=== PATIENT | male | born 1940 | race Caucasian/White ===

== ENCOUNTER 2018-04-12 12:04 | Day surgery (SDC) | payer MEDICARE ==
[~2018-04-12] VITALS: Ht 177.8 cm; Wt 92.3 kg
[~2018-04-12 12:04] MED LIST: ? BP MED; AMOX500 PO; Bystolic2.5 MG PO; EZET10-40; EZET10-40 PO; LEVO750 PO; Lovastatin20 MG PO; METO50 PO; MOEHYD7.5 PO; TRAZ50 PO; VENL25 PO; Zestril40 MG PO
[2018-04-12] MEDS ORDERED: ASPI81CH (12:23)
== END 2018-04-12 13:23 | disposition home or self-care (01) ==
LOC: ORSCSDS 12:04
PROVIDERS: Anesthesiology
PROC: 3E0R33Z Introduction of Anti-inflammatory into Spinal Canal, Percutaneous Approach (ICD-10-PCS; principal; 2018-04-12 13:15)
DX: M54.16 Radiculopathy, lumbar region (principal); I10 Essential (primary) hypertension; F32.9 Major depressive disorder, single episode, unspecified; I25.10 Atherosclerotic heart disease of native coronary artery without angina pectoris; I25.2 Old myocardial infarction; G47.33 Obstructive sleep apnea (adult) (pediatric); Z79.82 Long term (current) use of aspirin; Z79.899 Other long term (current) drug therapy
CPT/HCPCS: J1040

== ENCOUNTER 2018-05-13 08:52 | Day surgery (SDC) | payer MEDICARE ==
[~2018-05-13] VITALS: Ht 177.8 cm; Wt 94.4 kg
[~2018-05-13 08:52] MED LIST changes: +ASPI81CH
== END 2018-05-13 10:29 | disposition home or self-care (01) ==
LOC: ORSCSDS 08:52
PROVIDERS: Anesthesiology
PROC: 3E0R33Z Introduction of Anti-inflammatory into Spinal Canal, Percutaneous Approach (ICD-10-PCS; principal; 2018-05-13 10:00)
DX: M54.16 Radiculopathy, lumbar region (principal); I10 Essential (primary) hypertension; G47.33 Obstructive sleep apnea (adult) (pediatric); I25.2 Old myocardial infarction; I25.10 Atherosclerotic heart disease of native coronary artery without angina pectoris; Z79.82 Long term (current) use of aspirin; Z79.899 Other long term (current) drug therapy
CPT/HCPCS: J1040

== ENCOUNTER → 2018-07-15 | Outpatient (CLI) | payer MEDICARE ==
[2018-07-15 09:17] LABS: Creatinine, Blood 1.05 mg/dL (0.60-1.20); Glomerular Filtration Rate >60 (60-)
== END | disposition home or self-care (01) ==
LOC: LAB SHORT 11:01 → LAB 11:01
PROVIDERS: Psychiatry & Neurology Neurology
DX: M54.16 Radiculopathy, lumbar region (principal); M62.81 Muscle weakness (generalized); G25.81 Restless legs syndrome
CPT/HCPCS: 36415; 82565

== ENCOUNTER → 2019-03-25 | Outpatient (CLI) | payer MEDICARE | END | disposition home or self-care (01) | LOC: LAB SHORT 14:20 → LAB EV 14:20 | DX: E11.9 Type 2 diabetes mellitus without complications (principal) | CPT/HCPCS: 82043 ==

== ENCOUNTER → 2020-10-08 | Outpatient (CLI) | payer MEDICARE | END | disposition home or self-care (01) | LOC: LAB SHORT 19:04 → LAB 19:04 | DX: Z20.828 Contact with and (suspected) exposure to other viral communicable diseases (principal) | CPT/HCPCS: U0003 ==

== ENCOUNTER 2021-05-13 11:19 | Emergency (ER) | payer MEDICARE ==
[~2021-05-13] VITALS: Ht 177.8 cm; Wt 88.9 kg
[2021-05-13 12:02] LABS: BASOPHILS ABSOLUTE AUTO 0.04 K/mm3 (0.00-0.23); BASOPHILS PERCENT AUTO 0 % (0-2); EOSINOPHILS ABSOLUTE AUTO 0.23 K/mm3 (0.00-0.68); EOSINOPHILS PERCENT AUTO 2 % (0-6); Hemoglobin 16.2 g/dL (13.5-17.5); IMMATURE GRAN ABSOLUTE AUTO 0.02 K/mm3 (0.00-0.10); IMMATURE GRAN PERCENT AUTO 0 % (0-1); LYMPHOCYTES ABSOLUTE AUTO 1.98 K/mm3 (0.84-5.20); LYMPHOCYTES PERCENT AUTO 21 % (21-46); MONOCYTES ABSOLUTE AUTO 1.51 K/mm3 (0.16-1.47); MONOCYTES PERCENT AUTO 16 % (4-13); Mean Corpuscular HGB 31.3 pg (26.0-34.0); Mean Corpuscular HGB Conc 34.5 g/dL (31.5-36.5); Mean Corpuscular Volume 91 fL (80-100); Mean Platelet Volume 9.9 fL (9.1-12.4); NEUTROPHILS ABSOLUTE AUTO 5.81 K/mm3 (1.96-9.15); NEUTROPHILS PERCENT AUTO 61 % (41-73); Platelet Count 200 K/mm3 (150-400); RDW Coefficient Variation 12.4 % (11.7-14.2); RDW Standard Deviation 41.4 fL (35.1-46.3); Red Blood Cell Count 5.17 M/mm3 (4.30-5.90); White Blood Cell Count 9.59 K/mm3 (4.00-11.30)
[2021-05-13 12:16] LABS: Alanine Aminotransfer (ALT/SGP 21 U/L (12-78); Albumin, Blood 3.5 g/dL (3.4-5.0); Albumin/Globulin Ratio 0.9 (0.8-1.8); Alk Phos 42 U/L (50-136); Anion Gap 5 mmol/L (6-16); Aspartate Aminotrans (AST/SGOT 17 U/L (12-37); Bilirubin, Total 0.7 mg/dL (0.1-1.0); Blood Urea Nitrogen 15 mg/dL (8-24); CO2, Blood 24 mmol/L (21-32); Calcium, Blood 9.2 mg/dL (8.5-10.1); Chloride, Blood 108 mmol/L (98-108); Globulin, Blood 3.9 g/dL (2.2-4.0); Glomerular Filtration Rate >60 (60-); Glucose, Blood 84 mg/dL (70-99); Potassium, Blood 4.3 mmol/L (3.5-5.5); Sodium, Blood 137 mmol/L (136-145); Total Protein, Blood 7.4 g/dL (6.4-8.2)
[2021-05-13 12:22] LABS: Magnesium, Blood 2.1 mg/dL (1.6-2.4); Troponin I <0.015 ng/mL (0.000-0.040)
== END 2021-05-13 16:19 | disposition home or self-care (01) ==
LOC: ER 11:19
PROVIDERS: Emergency Medicine; Student in an Organized Health Care Education/Training Program
DX: R42 Dizziness and giddiness (principal); R50.9 Fever, unspecified; Z79.82 Long term (current) use of aspirin; Z79.899 Other long term (current) drug therapy
CPT/HCPCS: 36415; 70450; 71046; 80053; 83735; 84484; 85025; 93005; 93010; 99284-25

== ENCOUNTER 2022-07-28 06:22 | Day surgery (SDC) | payer MEDICARE ==
[~2022-07-28] VITALS: Ht 177.8 cm; Wt 91.0 kg
[~2022-07-28 06:22] MED LIST changes: -ASPI81CH; +ASPI81CH PO; +Crestor20 MG PO; +METO25; +PRAM.125 PO
--- NOTE | 2022-07-28 10:30 | NUR ---
10CC AIR REMOVED FROM R WRIST TR BAND. -BLEEDING OR SWELLING. PT AMB TO BATHROOM /C SBA.
--- NOTE | 2022-07-28 11:22 | NUR ---
PT AND VERBALIZED UNDERSTANDING OF WRITTEN AND VERBAL D/C INST. R WRIST TR BAND REMOVED AND CLEANED /C NS. CLOT DOT DRSG PLACED AND R WRIST SPLINT REAPPLIED. IV REMOVED. PT TAKEN OUT OF THE [facility]ENTER VIA W/C.
== END 2022-07-28 12:00 | disposition home or self-care (01) ==
LOC: MHTC 06:22
DX: I35.0 Nonrheumatic aortic (valve) stenosis (principal); I25.10 Atherosclerotic heart disease of native coronary artery without angina pectoris; I10 Essential (primary) hypertension; Z95.5 Presence of coronary angioplasty implant and graft; E78.5 Hyperlipidemia, unspecified; G47.33 Obstructive sleep apnea (adult) (pediatric); Z79.82 Long term (current) use of aspirin; F32.A Depression, unspecified; R06.02 Shortness of breath
CPT/HCPCS: 76937; 93454; 99152; 99153; A9270; C1769; C1887; C1894; J1644; J2250; J3010; J7030; J7040; Q9967

== ENCOUNTER 2022-08-12 19:12 | Inpatient (IN) | payer MEDICARE ==
[~2022-08-12] VITALS: Ht 177.8 cm; Wt 96.0 kg
[~2022-08-12 19:12] MED LIST changes: -METO25; +METO25 PO
[2022-08-12 20:38] LABS: BASOPHILS ABSOLUTE AUTO 0.01 K/mm3 (0.00-0.23); BASOPHILS PERCENT AUTO 0 % (0-2); EOSINOPHILS PERCENT AUTO 0 % (0-6); Hemoglobin 15.7 g/dL (13.5-17.5); IMMATURE GRAN ABSOLUTE AUTO 0.02 K/mm3 (0.00-0.10); IMMATURE GRAN PERCENT AUTO 0 % (0-1); LYMPHOCYTES ABSOLUTE AUTO 0.75 K/mm3 (0.84-5.20); LYMPHOCYTES PERCENT AUTO 9 % (21-46); MONOCYTES ABSOLUTE AUTO 1.11 K/mm3 (0.16-1.47); MONOCYTES PERCENT AUTO 13 % (4-13); Mean Corpuscular HGB 31.2 pg (26.0-34.0); Mean Corpuscular HGB Conc 34.9 g/dL (31.5-36.5); Mean Corpuscular Volume 90 fL (80-100); Mean Platelet Volume 10.4 fL (9.1-12.4); NEUTROPHILS ABSOLUTE AUTO 6.96 K/mm3 (1.96-9.15); NEUTROPHILS PERCENT AUTO 79 % (41-73); Platelet Count 156 K/mm3 (150-400); RDW Coefficient Variation 12.5 % (11.7-14.2); Red Blood Cell Count 5.03 M/mm3 (4.30-5.90); White Blood Cell Count 8.85 K/mm3 (4.00-11.30)
[2022-08-12 20:51] LABS: Albumin, Blood 3.5 g/dL (3.4-5.0); Albumin/Globulin Ratio 1.1 (0.8-1.8); Bilirubin, Direct 0.2 mg/dL (0.0-0.3); Bilirubin, Indirect 0.5 mg/dL (0.1-0.7); Bilirubin, Total 0.7 mg/dL (0.1-1.0); Bun/Creatinine Ratio 17.5 (12.0-20.0); Calcium, Blood 8.8 mg/dL (8.5-10.1); Creatinine, Blood 0.86 mg/dL (0.60-1.20); Globulin, Blood 3.2 g/dL (2.2-4.0); Magnesium, Blood 1.3 mg/dL (1.6-2.4); Potassium, Blood 3.8 mmol/L (3.5-5.5); Total Protein, Blood 6.7 g/dL (6.4-8.2)
[2022-08-12 21:28] LABS: Influenza A, PCR NEGATIVE (NEGATIVE); Influenza B, PCR NEGATIVE (NEGATIVE); Resp Syncytial Virus, PCR NEGATIVE (NEGATIVE); SARS-Cov-2 (COVID-19) PCR, MMC POSITIVE (NEGATIVE)
[2022-08-13 05:09] LABS: BASOPHILS ABSOLUTE AUTO 0.01 K/mm3 (0.00-0.23); BASOPHILS PERCENT AUTO 0 % (0-2); EOSINOPHILS PERCENT AUTO 0 % (0-6); IMMATURE GRAN ABSOLUTE AUTO 0.01 K/mm3 (0.00-0.10); IMMATURE GRAN PERCENT AUTO 0 % (0-1); LYMPHOCYTES PERCENT AUTO 8 % (21-46); MONOCYTES ABSOLUTE AUTO 0.26 K/mm3 (0.16-1.47); MONOCYTES PERCENT AUTO 4 % (4-13); Mean Corpuscular HGB 30.9 pg (26.0-34.0); Mean Corpuscular HGB Conc 34.1 g/dL (31.5-36.5); Mean Corpuscular Volume 91 fL (80-100); Mean Platelet Volume 10.7 fL (9.1-12.4); NEUTROPHILS ABSOLUTE AUTO 5.17 K/mm3 (1.96-9.15); NEUTROPHILS PERCENT AUTO 87 % (41-73); Platelet Count 149 K/mm3 (150-400); RDW Coefficient Variation 12.7 % (11.7-14.2); RDW Standard Deviation 42.1 fL (35.1-46.3); Red Blood Cell Count 4.86 M/mm3 (4.30-5.90); White Blood Cell Count 5.95 K/mm3 (4.00-11.30)
[2022-08-13 05:42] LABS: Albumin, Blood 3.2 g/dL (3.4-5.0); Bilirubin, Total 0.5 mg/dL (0.1-1.0); Bun/Creatinine Ratio 17.2 (12.0-20.0); Calcium, Blood 8.2 mg/dL (8.5-10.1); Creatinine, Blood 0.75 mg/dL (0.60-1.20); Globulin, Blood 3.1 g/dL (2.2-4.0); Potassium, Blood 4.1 mmol/L (3.5-5.5); Total Protein, Blood 6.3 g/dL (6.4-8.2)
--- NOTE | 2022-08-13 07:32 | NUR ---
VENEER DRIER FEEDER SUMMARY PT GOES BY "[facility]". A&Ox4. PLEASANT AND COOPERATIVE WITH CARE. VSS. ENHANCED PRECAUTIONS FOR +COVID. FINE CRACKLES AUSCULTATED BILATERAL LUNG BASES. IV RAC PATENT AND INFUSING. SBA FOR AMBULATION, SO USING BEDSIDE URINAL. NEED GI PANEL STOOL SAMPLE. SCHEDULED FOR OPEN-HEART SURGERY NEXT WEEK. REPORT TO ONCOMING RN.
--- NOTE | 2022-08-13 11:16 | NUR ---
PATIENT PLEASANT TO CARE, MAKES NEEDS KNOWN, DENIES ANY COMPLAINTS OR CONCERNS, CALL LIGHT WITH IN REACH, SHOWER AND ORAL CARE COMPLETE. STOOL SAMPLE STILL NEEDED
--- NOTE | 2022-08-13 18:17 | NUR ---
ALERT AND ORIENTED, MAKES NEEDS KNOWN, CALL LIGHT WITH IN REACH, PLEASANT TO CARE, DR POWERS ROUNDED ON PATIENT. NO CHANGES CONTINUE REMDISIVER. STILL NEED STOOL SAMPLE, TO HAVE CABG NEXT WEEK, EDUCATION PRINTED ON CABG. VISITNG TODAY, HELPFUL WITH CARE, SATS 95% ON RA, GOOD APPETITE, NO NV, ACTIVE BT. TELEMETRY HEART RATE INCREASED TO 140S EARLIER, MEDICATED WITH SCHEDULED CARDIAC MEDICATION NOW IN 80. NO ACUTE CHANGES, WILL RELAY TO PN RN, WCTM
[2022-08-14 05:20] LABS: BASOPHILS ABSOLUTE AUTO 0.01 K/mm3 (0.00-0.23); BASOPHILS PERCENT AUTO 0 % (0-2); EOSINOPHILS PERCENT AUTO 0 % (0-6); Hematocrit 44.4 % (37.0-53.0); Hemoglobin 15.1 g/dL (13.5-17.5); IMMATURE GRAN ABSOLUTE AUTO 0.04 K/mm3 (0.00-0.10); IMMATURE GRAN PERCENT AUTO 0 % (0-1); LYMPHOCYTES ABSOLUTE AUTO 1.34 K/mm3 (0.84-5.20); LYMPHOCYTES PERCENT AUTO 12 % (21-46); MONOCYTES ABSOLUTE AUTO 1.14 K/mm3 (0.16-1.47); MONOCYTES PERCENT AUTO 10 % (4-13); Mean Corpuscular HGB 30.9 pg (26.0-34.0); Mean Corpuscular Volume 91 fL (80-100); Mean Platelet Volume 10.9 fL (9.1-12.4); NEUTROPHILS ABSOLUTE AUTO 8.67 K/mm3 (1.96-9.15); NEUTROPHILS PERCENT AUTO 77 % (41-73); Platelet Count 150 K/mm3 (150-400); RDW Coefficient Variation 12.6 % (11.7-14.2); Red Blood Cell Count 4.89 M/mm3 (4.30-5.90)
[2022-08-14 05:51] LABS: Bilirubin, Total 0.3 mg/dL (0.1-1.0); Bun/Creatinine Ratio 23.9 (12.0-20.0); Calcium, Blood 8.4 mg/dL (8.5-10.1); Creatinine, Blood 0.79 mg/dL (0.60-1.20); Globulin, Blood 3.1 g/dL (2.2-4.0); Magnesium, Blood 1.9 mg/dL (1.6-2.4); Phosphorus, Blood 2.7 mg/dL (2.5-4.9); Potassium, Blood 4.1 mmol/L (3.5-5.5); Total Protein, Blood 6.1 g/dL (6.4-8.2)
--- NOTE | 2022-08-14 06:32 | NUR ---
QUILLER OPERATOR SUMMARY A&Ox4. PLEASANT AND COOPERATIVE WITH CARE. VSS. C/O DIFFICULTY SLEEPING LAST NIGHT IN SPITE OF HAVING HAD A SECOND TRAZODONE PER ON-CALL PROVIDER. COMPLIANT WITH CPAP AND BiOX. NO ASE TO REMDESIVIR. SPOT >90% RA BUT WILL USE O2 WITH EXERTION. VERY CONCERNED R/T HAVING TO RESCHEDULE HIS HEART SURGERY. TELE SINUS STEVE AT 57bpm. NO ACUTE ISSUES T/O EVENING. WILL REPORT TO ONCOMING RN.
--- NOTE | 2022-08-14 06:38 | NUR ---
DINKEY OPERATOR SLATE SUMMARY A&Ox3. DROWSY, BUT WAKES WITH SOME COAXING. IV SITE CHANGED. CONTINUES WITH IV ABx. OBRIEN PATENT AND DRAINING TO GRAVITY. ACCEPTED MEDS BUT CONTINUES TO DECLINE ANY FOOD. C/O NAUSEA AND SOME GENERALIZED PAIN RELIEVED WITH PO APAP AND IV COMPAZINE. ANTICIPATE ETHICS COMMITTEE CONSULTATION R/T ESTABLISHING MEDICAL DECISION-MAKING. WILL REPORT TO ONCOMING RN.
--- NOTE | 2022-08-14 14:38 | NUR ---
YOSEF IS DISCHARGED TO HOME BY HE IS TO FOLLOW UP WITH HIS PCP AT [facility] WITHIN 7 DAYS. PATIENT AND SPOUSE WILL ALSO COMMUNICATE WITH HIS PAINT LABORATORY TECHNICIAN TO SEE IF HE NEEDS TO RESCHEDULE HIS SURGERY FOR CABG NEXT WEEK. PATIENT VERBALIZED DC INSTRUCTIONS ONLY MEDICATION CHANGE IS METOPROLOL 25MG TO 12.5MG BID NOW RATHER THAN 25MG DAILY. QUINTON TAKEN TO LOBBY VIA WHEELCHAIR AND SPOUSE TO DRIVE HIM HOME.
== END 2022-08-14 14:15 | disposition home or self-care (01) | DRG 177 ==
LOC: ER 19:12 → MEDS 21:58
PROVIDERS: Hospitalist; Student in an Organized Health Care Education/Training Program; ADMIT Internal Medicine
PROC: XW033E5 Introduction of Remdesivir Anti-infective into Peripheral Vein, Percutaneous Approach, New Technology Group 5 (ICD-10-PCS; principal; 2022-08-12)
PROC: 3E0333Z Introduction of Anti-inflammatory into Peripheral Vein, Percutaneous Approach (ICD-10-PCS; 2022-08-12)
PROC: 8E0ZXY6 Isolation (ICD-10-PCS; 2022-08-12)
DX: U07.1 COVID-19 (principal); J96.91 Respiratory failure, unspecified with hypoxia; A08.39 Other viral enteritis; I35.0 Nonrheumatic aortic (valve) stenosis; I25.10 Atherosclerotic heart disease of native coronary artery without angina pectoris; I10 Essential (primary) hypertension; G47.33 Obstructive sleep apnea (adult) (pediatric); C61 Malignant neoplasm of prostate; E78.00 Pure hypercholesterolemia, unspecified; G47.00 Insomnia, unspecified; E86.0 Dehydration; Z98.890 Other specified postprocedural states; Z79.899 Other long term (current) drug therapy; Z79.811 Long term (current) use of aromatase inhibitors; Z79.82 Long term (current) use of aspirin; Z95.1 Presence of aortocoronary bypass graft; Z95.5 Presence of coronary angioplasty implant and graft; Z99.81 Dependence on supplemental oxygen
CPT/HCPCS: 0241U; 36415; 71045; 80048; 80053; 80076; 83690; 83735; 84100; 85025; 85379; 93005; 93010; 96365; 96366; 96372-59; 96375; 99285-25; A9270; J0248; J1100; J1650; J3475; J7030; J7050

== ENCOUNTER 2023-01-18 11:12 | Day surgery (SDC) | payer MEDICARE ==
[~2023-01-18] VITALS: Ht 177.8 cm; Wt 84.4 kg
[~2023-01-18 11:12] MED LIST changes: +AMLO5 PO; +Finacea50 GM TP; +VITAMIN D310 MC5 PO
[2023-01-18 12:07] LABS: Bun/Creatinine Ratio 21.9 (12.0-20.0); Calcium, Blood 9.3 mg/dL (8.5-10.1); Creatinine, Blood 0.87 mg/dL (0.60-1.20); Potassium, Blood 5.2 mmol/L (3.5-5.5)
[2023-01-18 12:08] LABS: BASOPHILS ABSOLUTE AUTO 0.04 K/mm3 (0.00-0.23); BASOPHILS PERCENT AUTO 1 % (0-2); EOSINOPHILS ABSOLUTE AUTO 0.38 K/mm3 (0.00-0.68); EOSINOPHILS PERCENT AUTO 4 % (0-6); Hematocrit 46.5 % (37.0-53.0); Hemoglobin 15.8 g/dL (13.5-17.5); IMMATURE GRAN ABSOLUTE AUTO 0.01 K/mm3 (0.00-0.10); IMMATURE GRAN PERCENT AUTO 0 % (0-1); LYMPHOCYTES ABSOLUTE AUTO 2.37 K/mm3 (0.84-5.20); LYMPHOCYTES PERCENT AUTO 28 % (21-46); MONOCYTES ABSOLUTE AUTO 0.93 K/mm3 (0.16-1.47); MONOCYTES PERCENT AUTO 11 % (4-13); Mean Corpuscular HGB 29.8 pg (26.0-34.0); Mean Corpuscular Volume 88 fL (80-100); Mean Platelet Volume 10.5 fL (9.1-12.4); NEUTROPHILS ABSOLUTE AUTO 4.85 K/mm3 (1.96-9.15); NEUTROPHILS PERCENT AUTO 57 % (41-73); Platelet Count 168 K/mm3 (150-400); RDW Coefficient Variation 13.4 % (11.7-14.2); RDW Standard Deviation 43.4 fL (35.1-46.3); Red Blood Cell Count 5.31 M/mm3 (4.30-5.90); White Blood Cell Count 8.58 K/mm3 (4.00-11.30)
[2023-01-18 12:10] LABS: International Normalized Ratio 1.21; Prothrombin Time Results 12.5 Sec (9.7-11.5)
--- NOTE | 2023-01-18 18:25 | NUR ---
Pt arrived to the unit post pacer, and was alert and oriented, pleasantly conversant and cooperative. Smiling and making jokes at the time. His , daughter and a friend were at the bedside soon after he arrived. Vital signs were stable. Left chest wall dressing noted in place and intact without drainage, bleeding nor bruising. Ice pack was placed over the site for comfort and to reduce any swellling. He denied any pain nor symptoms. Pt and visitors present were educated on plan post surgery for this evening, tomorrow and at discharge. Activity restriction on the use of the left arm were reviewed; the pt stated that he was familiar with them as he had been told about it before. Also reviewed with his the wound check and pacemaker clinic appointments which had already been made. Pt was given a 12 lead EKG, a snack, and was also helped to walk to the bathroom to void, using his cane in his right hand and with staff walking with him. He denied any symptoms with this activity.
--- NOTE | 2023-01-19 06:39 | NUR ---
SHIFT SUMMARY PATIENT ALERT AND ORIENTED X4. ABLE TO AMBULATE TO THE BATHROOM INDEPENDENTLY. MEDICATED PER EMAR FOR HEADACHE. NO COMPLAINTS OF CHEST PAIN OR SHORTNESS OF BREATH. VITAL SIGNS STABLE. LUNGS CLEAR IN ALL CASTRO. SPO2 >90% ON ROOM AIR. THERE WAS A CONCERN FOR TELEMETRY CHANGES OVERNIGHT, EKG OBTAINED AND IS IN CHART. DRESSING IN PLACE OVER PACER SITE, NO BRUSING, BLEEDING, OR SWELLING NOTED. WILL CONTINUE TO MONITOR. CALL LIGHT WITHIN REACH.
[2023-01-19] MEDS ORDERED: METO100ER PO (08:19)
== END 2023-01-19 10:54 | disposition home or self-care (01) ==
LOC: MHTC 11:12 → PCU 14:33 → MHTC 01-19 10:54
PROVIDERS: Internal Medicine Cardiovascular Disease
DX: I49.5 Sick sinus syndrome (principal); I44.2 Atrioventricular block, complete; I50.21 Acute systolic (congestive) heart failure; I25.10 Atherosclerotic heart disease of native coronary artery without angina pectoris; Z95.1 Presence of aortocoronary bypass graft; Z95.5 Presence of coronary angioplasty implant and graft; I11.0 Hypertensive heart disease with heart failure; E78.5 Hyperlipidemia, unspecified; Z79.82 Long term (current) use of aspirin; I42.2 Other hypertrophic cardiomyopathy
CPT/HCPCS: 33208; 71046; 80048; 85025; 85610; 93005; 93010; 99152; 99153; A9270; C1785; C1894; C1898; J0690; J1644; J2250; J3010; J7030; J7040; Q9967

== ENCOUNTER 2023-03-28 11:55 | Day surgery (SDC) | payer MEDICARE ==
[~2023-03-28] VITALS: Ht 177.8 cm; Wt 86.9 kg
[~2023-03-28 11:55] MED LIST changes: +METO100ER PO
[2023-03-28] MEDS ORDERED: LISI20 (12:18)
[2023-03-28 15:13] VITALS: BP 121/70
== END 2023-03-28 15:45 | disposition home or self-care (01) ==
LOC: ORSCSDS 11:55
PROVIDERS: Internal Medicine Gastroenterology
PROC: 0DBK8ZX Excision of Ascending Colon, Via Natural or Artificial Opening Endoscopic, Diagnostic (ICD-10-PCS; principal; 2023-03-28 13:15)
DX: K59.00 Constipation, unspecified (principal); D12.2 Benign neoplasm of ascending colon; G47.30 Sleep apnea, unspecified; Z95.0 Presence of cardiac pacemaker; K57.30 Diverticulosis of large intestine without perforation or abscess without bleeding; I10 Essential (primary) hypertension; I25.10 Atherosclerotic heart disease of native coronary artery without angina pectoris; G47.33 Obstructive sleep apnea (adult) (pediatric); Z79.82 Long term (current) use of aspirin; Z79.899 Other long term (current) drug therapy
CPT/HCPCS: 88305; J2704; J7120

== ENCOUNTER 2023-06-09 09:08 | Emergency (ER) | payer MEDICARE ==
[~2023-06-09] VITALS: Ht 177.8 cm; Wt 85.7 kg
[~2023-06-09 09:08] MED LIST changes: +LISI20
[2023-06-09 10:08] VITALS: BP 157/75
== END 2023-06-09 11:30 | disposition home or self-care (01) ==
LOC: ER 09:08
DX: R07.81 Pleurodynia (principal); Z79.899 Other long term (current) drug therapy; Z79.82 Long term (current) use of aspirin; G47.00 Insomnia, unspecified; E78.5 Hyperlipidemia, unspecified
CPT/HCPCS: 71101; 99283-25

== ENCOUNTER 2025-10-25 18:08 | Emergency (ER) | payer MEDICARE ==
[~2025-10-25] VITALS: Ht 170.2 cm; Wt 95.2 kg
[2025-10-25 18:48] LABS: BASOPHILS ABSOLUTE AUTO 0.03 K/mm3 (0.00-0.23); BASOPHILS PERCENT AUTO 0 % (0-2); EOSINOPHILS ABSOLUTE AUTO 0.22 K/mm3 (0.00-0.68); EOSINOPHILS PERCENT AUTO 2 % (0-6); Hematocrit 47.8 % (37.0-53.0); Hemoglobin 16.3 g/dL (13.5-17.5); IMMATURE GRAN ABSOLUTE AUTO 0.04 K/mm3 (0.00-0.10); IMMATURE GRAN PERCENT AUTO 0 % (0-1); LYMPHOCYTES ABSOLUTE AUTO 1.99 K/mm3 (0.84-5.20); LYMPHOCYTES PERCENT AUTO 17 % (21-46); MONOCYTES ABSOLUTE AUTO 1.35 K/mm3 (0.16-1.47); MONOCYTES PERCENT AUTO 12 % (4-13); Mean Corpuscular HGB Conc 34.1 g/dL (31.5-36.5); Mean Corpuscular Volume 92 fL (80-100); NEUTROPHILS ABSOLUTE AUTO 8.02 K/mm3 (1.96-9.15); NEUTROPHILS PERCENT AUTO 69 % (41-73); NRBC ABSOLUTE 0.00 K/mm3 (0.00-0.02); NRBC Auto 0.0 /100 WBC (0.0-0.2); Platelet Count 178 K/mm3 (150-400); RDW Coefficient Variation 12.2 % (11.7-14.2); RDW Standard Deviation 42.1 fL (35.1-46.3)
[2025-10-25 19:07] LABS: Alanine Aminotransfer (ALT/SGP 22.0 U/L (12-78); Albumin, Blood 3.6 g/dL (3.4-5.0); Albumin/Globulin Ratio 0.9 (0.8-1.8); Anion Gap 9.0 mmol/L (3-11); Aspartate Aminotrans (AST/SGOT 20.0 U/L (12-37); Bilirubin, Total 0.7 mg/dL (0.1-1.0); Blood Urea Nitrogen 14.0 mg/dL (8-24); CO2, Blood 27.0 mmol/L (21-32); Calcium, Blood 9.0 mg/dL (8.5-10.1); Chloride, Blood 102.0 mmol/L (98-108); Creatinine, Blood 0.95 mg/dL (0.60-1.20); Globulin, Blood 3.8 g/dL (2.2-4.0); Glucose, Blood 126.0 mg/dL (70-99); Potassium, Blood 3.9 mmol/L (3.5-5.5); Sodium, Blood 134.0 mmol/L (136-145); Total Protein, Blood 7.4 g/dL (6.4-8.2)
[2025-10-25 19:18] LABS: Influenza A, PCR NEGATIVE (NEGATIVE); Influenza B, PCR NEGATIVE (NEGATIVE); Resp Syncytial Virus, PCR NEGATIVE (NEGATIVE); SARS-Cov-2 (COVID-19) PCR, MMC NEGATIVE (NEGATIVE)
[2025-10-25 21:46] VITALS: BP 129/84
== END 2025-10-25 21:45 | disposition home or self-care (01) ==
LOC: ER 18:08
PROVIDERS: Student in an Organized Health Care Education/Training Program
DX: S29.011A Strain of muscle and tendon of front wall of thorax, initial encounter (principal); J06.9 Acute upper respiratory infection, unspecified; D72.829 Elevated white blood cell count, unspecified; Z79.82 Long term (current) use of aspirin; Z79.899 Other long term (current) drug therapy; Z59.89 Other problems related to housing and economic circumstances; X50.9XXA Other and unspecified overexertion or strenuous movements or postures, initial encounter
CPT/HCPCS: 71046; 80053; 83690; 84484; 85025; 87637; 93005; 93010; 99284-25